=== PATIENT | female | born 1990 | race Two or more races ===

== ENCOUNTER 2022-10-11 10:54 | Emergency (ER) | payer BC, MEDICAID, SELFPAY ==
[2022-10-11] VITALS (16 sets, daily range): BP systolic 125–136; BP diastolic 74–91; PULSE 49–70; RESP 16; TEMP 36.1–36.4; O2SAT 94–100
--- NOTE | 2022-10-11 15:44 | ED.GENADULT ---
HPI - General Adult General Chief complaint: Arrhythmia/Palpitations Stated complaint: lightheaded, rapid heartbeat, feeling off Time Seen by Provider: 10/11/22 14:47 History of Present Illness HPI narrative: patient has not been feeling very good. lightheaded, faint, several times, just feels sick as if eaten too much candy. concerned about sugar issue. heart has been beating fast, heaviness, like elephant sitting on the chest. woke up with this pain . currently the heaviness is gone. shaking in the hands 32-year-old woman presenting to the emergency department with concern of rapid heart rate or least beating hard and had a sense of pressure in her chest. Maybe a little bit short of breath. This seemed to wake her out of sleep this morning lasted for perhaps 10 minutes. She was a little tremulous. Had a similar episode lasting maybe about 20 minutes and was associated with exertion, walking up a small hill. Had another episode where heart was beating heavy ear, faster when entered a hot tub. This lasted again a few minutes. She does have an [employer] watch has not been using this though to monitor. Does not have a history of dysrhythmia/arrhythmia. There is no family history of this either. No sudden cardiac . Generally would consider herself fairly healthy. 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 Does not have airway difficulties typically. Maybe beginning around February or March started to have some more trouble sleeping. Tried melatonin which did not really help. She is otherwise just felt a little more run down. She does acknowledge she could little bit of weight. She was seen in clinic and was noted to be prediabetic. There been a number of social stressors including a move I believe this last week and getting next week. She is not known to be anemic. Related Data Home Medications Medication Instructions Recorded Confirmed albuterol 90 mcg/actuation aerosol mcg inhalation 10/11/22 inhaler Allergies Allergy/AdvReac Type Severity Reaction Status Date / Time ibuprofen [From Motrin] Allergy Mild hives Verified 10/11/22 11:33 mustard seed Allergy Mild difficulyt Uncoded 10/11/22 11:33 breathing Review of Systems Status of ROS: Reports: 6 or more systems reviewed and unremarkable except as noted in History and below PFSH PFSH Social History Smoking Status: Never smoker Do you use any of these nicotine containing products: None How often do you have a drink containing alcohol: never AUDIT-C Alcohol total score: 0 Non-prescribed substance use: denies use Exam Narrative: Exam Narrative: Very pleasant. Of good energy. Appears generally well. Quite calm at this time. Has a scar at her anterior throat well-healed noticeably rough voice. Accompanied by 2 precocious twin daughters. Is breathing easily. There is no actual stridor. Lungs are clear. Heart is in a regular rate and rhythm without murmur rub or gallop. Lungs are clear breath sounds throughout. Extremities are well perfused without edema. Oropharynx is unremarkable. Const: Vital Signs, click to edit/add: Vital Signs - 24 hr 10/11/22 11:23 10/11/22 14:55 10/11/22 15:00 Temperature 97.5 F L Pulse Rate 53 L 51 L Pulse Rate [Right Pulse Oximeter] 58 L Respiratory Rate 16 Blood Pressure Blood Pressure [Ri ght Upper Arm] 135/84 Pulse Oximetry 99 100 100 Oxygen Delivery Me thod Room Air 10/11/22 15:02 10/11/22 15:03 10/11/22 15:07 Temperature 97 F L Pulse Rate 51 L 49 L Pulse Rate [Right Pulse Oximeter] Respiratory Rate Blood Pressure 128/74 Blood Pressure [Ri ght Upper Arm] Pulse Oximetry 100 100 Oxygen Delivery Me thod 10/11/22 15:15 10/11/22 15:17 10/11/22 15:30 Temperature Pulse Rate 56 L 55 L 60 Pulse Rate [Right Pulse Oximeter] Respiratory Rate Blood Pressure 126/82 Blood Pressure [Ri ght Upper Arm] Pulse Oximetry 98 98 100 Oxygen Delivery Me thod 10/11/22 15:32 10/11/22 15:33 10/11/22 15:45 Temperature Pulse Rate 57 L 54 L 58 L Pulse Rate [Right Pulse Oximeter] Respiratory Rate Blood Pressure 135/75 Blood Pressure [Ri ght Upper Arm] Pulse Oximetry 94 100 99 Oxygen Delivery Me thod 10/11/22 15:46 10/11/22 16:00 10/11/22 16:02 Temperature Pulse Rate 70 55 L 65 Pulse Rate [Right Pulse Oximeter] Respiratory Rate Blood Pressure 125/91 H 136/90 H Blood Pressure [Ri ght Upper Arm] Pulse Oximetry 99 100 100 Oxygen Delivery Me thod 10/11/22 16:15 Temperature Pulse Rate 58 L Pulse Rate [Right Pulse Oximeter] Respiratory Rate Blood Pressure Blood Pressure [Ri ght Upper Arm] Pulse Oximetry 98 Oxygen Delivery Me thod Documenting provider has reviewed patient's vital signs: yes Course Vital Signs Vital signs: Initial Vital Signs Temperature 97.5 F L 10/11/22 11:23 Temperature Source Temporal Artery Scan 10/11/22 11:23 Pulse Rate 58 L 10/11/22 11:23 Respiratory Rate 16 10/11/22 11:23 Blood Pressure 135/84 10/11/22 11:23 Blood Pressure Mean 101 10/11/22 11:23 Blood Pressure Position Sitting 10/11/22 11:23 Pulse Oximetry 99 10/11/22 11:23 Oxygen Delivery Method Room Air 10/11/22 11:23 Vital Signs Temperature 97.5 F L 10/11/22 11:23 Pulse Rate 58 L 10/11/22 11:23 Respiratory Rate 16 10/11/22 11:23 Blood Pressure 135/84 10/11/22 11:23 Pulse Oximetry 99 10/11/22 11:23 Oxygen Delivery Method Room Air 10/11/22 11:23 Temperature 97 F L 10/11/22 15:07 Pulse Rate 58 L 10/11/22 16:15 Respiratory Rate 16 10/11/22 11:23 Blood Pressure 136/90 H 10/11/22 16:02 Pulse Oximetry 98 10/11/22 16:15 Oxygen Delivery Method Room Air 10/11/22 11:23 Medical Decision Making MDM Narrative Medical decision making narrative: By the time I am seeing with outgrow her EKG has been done. This shows by my read a normal sinus rhythm maybe a little baseline irritability consistent with tension. Normal EKG though otherwise without acute ischemic changes are marked arrhythmia. Rate of 66. She has been on cardiac exercise specialist without event. Initial impression appears to be some possible attacks of anxiety and/or maybe an arrhythmia like SVT or AFib. Possibly some PVCs or PACs as well. No particular risk factors are identified. Does not have persistent symptoms as 1 might presume with infectious etiology or pericarditis or pulmonary embolus or anemia. Doubtful ischemic event. Is generally well. Looks well at this time. We discussed doing a workup here in the emergency department beyond initial EKG and cardiac monitoring or following up in primary care for further lab work including possibly evaluating some degree of endocrine axis or vitamin levels. Possibly longer cardiac monitoring. Certainly could benefit from better sleep. Encouraged continued exercise. She opts to follow-up in primary care. See patient discharge plan Discharge Plan Discharge Clinical Impression: Other social stressor, Palpitations Patient Disposition: Home, Self-Care Condition: Improved Additional Instructions: Yes, consider wearing your [employer] watch to capture some of these episodes. It might be best at just giving you the actual rate which would also inspire more investigation or monitoring. It does seem like you might be experiencing some degree of attacks of anxiety. Certainly you are under lot of stress. Do try to get quality and regular sleep, practice good sleep hygiene as discussed. Try to get in a little heart pumping exercise daily. Stay well-hydrated. Have fun next week. Call for a follow-up appointment with a primary care care provider to consider further evaluation is necessary. This might include basic labs, some endocrine studies, possibly vitamin levels. Prescriptions: No Action albuterol 90 mcg/actuation aerosol inhalation Follow Up/Referrals: Provider,Not a Local [Primary Care Provider] - Stand Alone Forms: Re[employer] Info Instructions
== END 2022-10-11 16:32 | disposition home or self-care (01) ==
PROVIDERS: Emergency Provider Family Medicine
DX: R00.2 Palpitations (principal); Z65.8 Other specified problems related to psychosocial circumstances
CPT/HCPCS: 99283; 99284

== ENCOUNTER 2022-11-03 23:40 | Emergency (ER) | payer BC, MEDICAID, SELFPAY ==
[2022-11-03 23:55] VITALS: BP 135/98; PULSE 89; RESP 18; TEMP 36.4; O2SAT 98; BMI 32.1
--- NOTE | 2022-11-04 01:48 | ED_ITS ---
HPI - General Adult General Chief complaint: Allergic Reaction Stated complaint: Possible allergic reaction, rash Time Seen by Provider: 11/04/22 01:26 Source: patient Mode of arrival: ambulatory Limitations: no limitations History of Present Illness HPI narrative: 32-year-old female presents the emergency department with few hour history of itchy rash to her ankles, inner thighs and top of her hand. No fever, no trauma or injury. No new topical, environmental or food exposures. No other family members affected, no prior history of similar symptoms. No shortness of breath. Took Benadryl at 7:00 p.m. and again at 11:00 p.m. with improvement in symptoms. No history of anaphylaxis. No GI changes, no fever. No other acute concerns Past medical history she reports is benign for long-term health problems. She was a 23 week preemie and had a tracheostomy no as a . She has also had an uncomplicated . She takes no long-term medications. She is a nonsmoker. No pertinent travel. ROS is notable for the skin symptoms as above only, otherwise denies times 12 systems Related Data Home Medications Medication Instructions Recorded Confirmed albuterol 90 mcg/actuation aerosol mcg inhalation 10/11/22 inhaler Previous Rx's Medication Instructions Recorded hydroxyzine pamoate 25 mg capsule 25 mg PO TID PRN #14 caps 11/04/22 (Vistaril) prednisone 20 mg tablet 20 mg PO DAILY #3 tabs 11/04/22 triamcinolone acetonide 0.1 % 1 applic topical BID PRN #80 grams 11/04/22 topical ointment Allergies Allergy/AdvReac Type Severity Reaction Status Date / Time mustard Allergy Severe Anaphylaxis Verified 11/04/22 00:02 ibuprofen [From Motrin] Allergy Mild hives Verified 11/04/22 00:02 [facility] Social History Smoking Status: Never smoker Do you use any of these nicotine containing products: None Second hand tobacco smoke exposure: No How often do you have a drink containing alcohol: never AUDIT-C Alcohol total score: 0 Non-prescribed substance use: denies use Exam Const: Vital Signs, click to edit/add: Vital Signs - 24 hr 11/03/22 23:55 Temperature 97.6 F Pulse Rate [Pulse Oximeter] 89 Respiratory Rate 18 Blood Pressure [Le ft Upper Arm] 135/98 H Pulse Oximetry 98 Oxygen Delivery Me thod Room Air Documenting provider has reviewed patient's vital signs: yes Common normals: no apparent distress General appearance: cooperative, comfortable and well kempt HENMT: Common normals: normocephalic and head/scalp atraumatic Head and scalp: normocephalic and atraumatic Mouth: oral and palatal mucosa normal Throat: posterior oropharynx normal Eye: Common normals: conjunctivae normal General eye: normal appearance of both eyes Conjunctiva: conjunctiva(e) normal Resp: Common normals: normal respiratory effort, no use of accessory muscles and clear to auscultation bilaterally Effort & inspection: able to speak in complete sentences Auscultation: clear to auscultation bilaterally Cardio: Common normals: regular rate, regular rhythm, S1 normal heart sound, S2 normal heart sound and no murmurs Rate: regular rate Rhythm: regular rhythm Heart sounds: S1 normal and S2 normal Extremity: Common normals: normal to inspection Psych: Appearance: well kempt Mood and affect: euthymic mood Insight: insight good Judgement: judgment good Skin: Narrative: Mild urticarial and macular rash on ankles, flexor surface of of the hand and inner thighs. Course Course ED Course: Mild you take area with no signs of anaphylaxis. Improving on Benadryl. Uncertain of initiating factor but this is common. Counseled patient on this. Reviewed alarm symptoms that would warrant ED presentation. Discussed systemic prednisone versus just topical steroids. Counseled on side effects of prednisone. She is very bothered by the itching would like to try the prednisone. 20 mg p.o. will be given in ED with 25 mg of p.o. Vistaril. Prescription for 3 days of prednisone, Vistaril and topical steroid sent pharmacy. Counseled on nondrowsy antihistamine like Claritin Devora or Zyrtec twice daily for the next 10 days as well. Patient verbalized understanding and agreement, all questions answered Vital Signs Vital signs: Initial Vital Signs Temperature 97.6 F 11/03/22 23:55 Temperature Source Temporal Artery Scan 11/03/22 23:55 Pulse Rate 89 11/03/22 23:55 Respiratory Rate 18 11/03/22 23:55 Blood Pressure 135/98 H 11/03/22 23:55 Blood Pressure Mean 110 H 11/03/22 23:55 Blood Pressure Position Supine 11/03/22 23:55 Pulse Oximetry 98 11/03/22 23:55 Oxygen Delivery Method Room Air 11/03/22 23:55 Vital Signs Temperature 97.6 F 11/03/22 23:55 Pulse Rate 89 11/03/22 23:55 Respiratory Rate 18 11/03/22 23:55 Blood Pressure 135/98 H 11/03/22 23:55 Pulse Oximetry 98 11/03/22 23:55 Oxygen Delivery Method Room Air 11/03/22 23:55 Temperature 97.6 F 11/03/22 23:55 Pulse Rate 89 11/03/22 23:55 Respiratory Rate 18 11/03/22 23:55 Blood Pressure 135/98 H 11/03/22 23:55 Pulse Oximetry 98 11/03/22 23:55 Oxygen Delivery Method Room Air 11/03/22 23:55 Discharge Plan Discharge Clinical Impression: Urticaria Patient Disposition: Home, Self-Care Condition: Stable Instructions: Urticaria (ED) Additional Instructions: As we discussed, your likely having a mild reaction to environmental allergies or simply a activation of your insistent which is unfortunately common in women at your age. There are no signs of anaphylaxis. Your given a dose of prednisone here in the ED, this will help blunt the reaction. Will give her prescription for a couple more days of prednisone as well as Vistaril which is a common anti-itch medication similar to Benadryl. I do find that this works a little better than Benadryl. If you have side effects from the prednisone, you may get by with just a topical rather than a systemic steroid. I will send some ointment to the pharmacy for you to apply just to the itchy areas. I have given you a total of 3 days of prednisone, but you may stop this after 2 days if your symptoms are markedly improved. Keep using the topical ointment for as long as the rash is present. Take a nondrowsy antihistamine like Claritin, Dveora or Zyrtec twice daily for the next 10 days. Most likely you are reacting to something environmental such as mold spores, grass or other similar allergen like ragweed. Allergy testing does not tend to reveal this and is not recommended. Come back to emergency room if you notice difficulty breathing, swelling of her airway or severe reaction. Activity Level: No Restrictions Discharge Diet: Regular Prescriptions: New prednisone 20 mg tablet 20 mg PO DAILY Qty: 3 0RF hydroxyzine pamoate [Vistaril] 25 mg capsule 25 mg PO TID PRNQty: 14 0RF triamcinolone acetonide 0.1 % ointment 1 applic topical BID PRNQty: 80 1RF No Action albuterol 90 mcg/actuation aerosol inhalation Follow Up/Referrals: Provider,Not a Local [Primary Care Provider] - Stand Alone Forms: [employer] Info Instructions
[2022-11-04] MEDS: hydrOXYzine pamoate 25 MG CAPSULE PO (01:51)
[2022-11-04] MEDS: predniSONE 10 MG TABLET 20 MG PO (01:51)
== END 2022-11-04 02:02 | disposition home or self-care (01) ==
LOC: ED 11-04 01:50
PROVIDERS: Emergency Provider Family Medicine
DX: L50.9 Urticaria, unspecified (principal)
CPT/HCPCS: 99283; 99284; A9270; J7512